=== PATIENT | female | born 1990 | race African-American/Black ===

== ENCOUNTER 2020-02-09 02:14 | Emergency (ER) | payer SELFPAY ==
[~2020-02-09] VITALS: Ht 172.7 cm; Wt 59.0 kg
--- NOTE | 2020-02-09 02:18 | NUR ---
ED Nurse Note: brought in by ambulance stephenie ra 27 from home c/o body chills; denies NVD. ambulatory with steady gait. changed into gown;attached to monitor. all safety measures met.
[2020-02-09 02:19] VITALS: BP 113/70
--- NOTE | 2020-02-09 02:50 | NUR ---
ED Nurse Note: iv access established. blood and urine collected; sent down to lab.
[2020-02-09 03:03] LABS: EOSINOPHILS % (AUTO) 0.9 % (0.0-3.0); HEMATOCRIT 36.1 % (37.0-47.0); HEMOGLOBIN 11.8 G/DL (12.0-16.0); LYMPHOCYTES % (AUTO) 24.1 % (20.0-45.0); MEAN CORPUSCULAR VOLUME 92 FL (80-99); MONOCYTES % (AUTO) 6.1 % (1.0-10.0); NEUTROPHILS % (AUTO) 67.9 % (45.0-75.0); PLATELET COUNT 176 K/UL (150-450); RED BLOOD COUNT 3.95 M/UL (4.20-5.40); RED CELL DISTRIBUTION WIDTH 11.9 % (11.6-14.8); WHITE BLOOD COUNT 6.9 K/UL (4.8-10.8)
[2020-02-09 03:16] LABS: ANION GAP 8 mmol/L (5-15); BLOOD UREA NITROGEN 13 mg/dL (7-18); CALCIUM 8.5 MG/DL (8.5-10.1); CARBON DIOXIDE 27 MMOL/L (21-32); CHLORIDE 102 MMOL/L (98-107); CREATININE 0.9 MG/DL (0.55-1.30); POTASSIUM 3.5 MMOL/L (3.5-5.1); SODIUM 137 MMOL/L (136-145)
--- NOTE | 2020-02-09 03:24 | NUR ---
ED Nurse Note: imaging completed at bedside with senior wind turbine technician
[2020-02-09 03:26] LABS: APPEARANCE,URINE CLEAR; BILIRUBIN, URINE NEGATIVE (NEGATIVE); COLOR,URINE PALE YELLOW; GLUCOSE, URINE (UA) NEGATIVE (NEGATIVE); KETONES,URINE 2+ (NEGATIVE); LEUKOCYTE ESTERASE ,URINE NEGATIVE (NEGATIVE); NITRITE,URINE NEGATIVE (NEGATIVE); PH,URINE 6 (4.5-8.0); PROTEIN,URINE NEGATIVE (NEGATIVE); UROBILINOGEN,URINE NORMAL MG/DL (0.0-1.0)
[2020-02-09 03:29] LABS: ALANINE AMINOTRANSFERASE 8 U/L (12-78); ALBUMIN 3.9 G/DL (3.4-5.0); ALBUMIN/GLOBULIN RATIO 1.2 (1.0-2.7); ALKALINE PHOSPHATASE 55 U/L (46-116); ASPARTATE AMINO TRANSFERASE 15 U/L (15-37); BILIRUBIN,TOTAL 0.6 MG/DL (0.2-1.0)
[2020-02-09] MEDS ORDERED: EPIPEN 2-P0.3 MG/0.3 IM (03:52)
--- NOTE | 2020-02-09 03:54 | Emergency Room Report ---
History of Present Illness General Chief Complaint: General Complaint Source: Patient Present Illness HPI 29-year-old -Gab[place] female with past medical history of anxiety presents by ambulance with complaint of palpitations. She states that her symptoms started today after dying her hair. This is the first time using that chemical for dying her hair. She noted that it made her scalp extra tingly/itchy and had some hives on the left shoulder and left neck that self resolved. She states that this reaction caused her to feel more anxious and that is when her palpitations started. These palpitations are consistent with her previous panic attacks according to the patient. She denies any pressure-like chest pain, hemoptysis, history of blood clot diaphoresis, nausea, vomiting, diarrhea, fever, cough, wheezing, lip swelling, throat closure, or other symptoms. Denies recent travel, immobilization, or surgery. denies any new soaps, detergents, or changes in diet. LMP yesterday. The patient's symptoms were gradual onset, severity was moderate, duration since 1 day. Quality: Itchy Past medical history: Anxiety Past surgical history: Denies Smoking: Denies Alcohol use: Denies Drug use: Denies Review of systems: CONST: No fevers or chills, No night sweats PULMONARY: No productive cough, No shortness of breath CARDIAC: No chest pain, ++ palpitations GI: No vomiting, No diarrhea , No melena_or_BRBPR : No dysuria, No hematuria, No discharge NEURO: No new_focal_weakness_or_numbness, No confusion, No vision changes 14 point Review of Systems is otherwise negative except per HPI Physical Exam: GENERAL: Awake_alert_ nontoxic, no acute distress Spo2 100% on RA -normal EYES: Extraocular muscles are intact. Conjunctivae clear. Lids without swelling ENT: External nose and ear normal_in_appearance. Oropharynx clear. Head_atraumatic, Moist_oral_mucosa No stridor, drooling, hoarse voice. No lip swelling. No angioedema. NECK: No JVD. No meningismus. No thyromegaly. Supple. Trachea midline RESP: Normal respiratory effort. Symmetric rise. No stridor. Clear_to_auscultation_No_rales_No_wheezes CARDIAC: Regular rate and regular rhytm. No_significant pedal edema. ABDOMEN: Soft. Nondistended. Nontender_No_rebound_or_guarding. MSK: Normal muscle tone, without rigidity. Extremities without asymmetric deformity or swelling. SKIN: Warm and dry. No visible cyanosis or pallor Cupping to the posterior thoracic area. No crepitus. No cellulitis NEUROLOGIC: Alert, oriented x3. Motor_and_sensation_grossly_intact. No truncal ataxia. Gait_normal Psych: Normal mood and affect, normal judgment and insight - COORDINATION OF CARE Case was discussed with: Patient Any labs and imaging that were ordered were interpreted as part of the medical decision making: Medical Decision Making/Plan: Initial VSS stable. Airway is intact with no stridor, drooling, or increased WOB. No oral, tongue or lip swelling noted. Patient appears to be presenting with mild to moderate allergic reaction, there is no evidence of angioedema, no oral involvement, no difficulty breathing or nausea vomiting. Patient is nontoxic and well-appearing the patient is tolerating fluids. The findings are minimal and due to nonprogression of symptoms here the patient is safe to discharge home. The patient feels comfortable with plan and will return immediately if symptoms begin to worsen. Patient given a dose of steroids and Benadryl here in the emergency department. Patient will be discharged with an EpiPen and told to follow-up with an tape controlled machine stitcher. She was incidentally found to have HCG of 265, far below discriminatory zone. No abdominal pain, nausea, vomiting, or pelvic pain. Unlikely ectopic. She was instructed to follow up with CHARGEBACK SPECIALIST for repeat hcg quant in 48 hrs. Regarding care She was educated about potential teratogenic effect of epipen and to only use if she is having life threatening anaphylaxis. She has been instructed to avoid using this hair dye in the future. Palpitations are not consistent with ACS. EKG is nonischemic. Troponin is negative x1. HEART score 0. Doubt PE. PERC negative Patient was instructed to avoid all potential allergic stimuli in the future The patient was instructed to avoid potential precipitating factor and to follow up with their regular physician for referral to powered bridge specialist for definitive allergy testing. Pertinent results reviewed with the patient. I educated the patient on the c urrent treatment plan including the risks, benefits, and alternatives. I also discussed the extent and limitations of the current evaluation. The patient expressed understanding and agreement with plan. I recommended PMD follow-up within 1-2 days. Also advised that the patient return to the Emergency Department as soon as possible if they experience any new, persistent, or worsening symptoms. Allergies: Coded Allergies: SULFA (SULFONAMIDE ANTIBIOTICS) (Verified Allergy, Mild, 02/09/20) COVID-19 Screening Contact w/high risk pt: No Experienced COVID-19 symptoms?: No COVID-19 Testing performed POLICY WRITER TYPIST: No Patient History Last Menstrual Period: 02/08/2020 Now: Yes : 4 Para: 2 Nursing Documentation-[facility] Past Medical History: No History, Except For Hx Asthma: Yes History Of Psychiatric Problem: Yes - ANXIETY Physical Exam Vital Signs Date Time Temp Pulse Resp B/P (MAP) Pulse Ox O2 Delivery O2 Flow Rate FiO2 02/09/20 02:11 98.8 97 16 113/70 (84) 98 Room Air Sp02 EP Interpretation: reviewed, normal Medical Decision Making Diagnostic Impression: Primary Impression: Palpitations Additional Impressions: Anxiety Allergic reaction EKG Diagnostic Results Troponin ordered: Yes When was troponin ordered?: Feb 09, 2020 EKG Time: 02:11 EP Interpretation: saadia STEEL Scribe Text 12-lead EKG (interpreted by me) Time: 0254 Indication: Rhythm analysis Tracing visualized and Interpreted by me. Rhythm: Normal sinus rhythm Rate: 84 bpm QTc: 432 Morphology: No_significant_ST_elevations_or_depressions, No STEMI Impression: Normal_sinus_rhythm_without_significant_abnormality Rhythm Strip Diag. Results Rhythm Strip Time: 03:50 EP Interpretation: yes Rate: 84 Rhythm: NSR, no PVC's, no ectopy Chest X-Ray Diagnostic Results Chest X-Ray Diagnostic Results : DAMIÁN Scribe Text Chest X-Ray: Views: 1 view(s) Indication: Palpitations Findings: Normal heart size. Mediastinum normal. No infiltrate. Impression: No acute disease The X-ray(s) were independently viewed and interpreted contemporaneously Electronically signed by Carla gallagher DO Reevaluation Time: 03:51 Last Vital Signs Date Time Temp Pulse Resp B/P (MAP) Pulse Ox O2 Delivery O2 Flow Rate FiO2 02/09/20 02:19 98.8 77 16 113/70 98 Room Air Status: improved Disposition: HOME, SELF-CARE Admit Decision Time: 03:51 Condition: Stable Scripts Epinephrine (Epipen 2-Ross) 0.3 Mg/0.3 Ml Auto.injct 0.3 MG IM 1 for anaphylaxis for 1 Day, #1 EA Prov: Carla Oneill D.O. 02/09/20 Additional Instructions: Instructions for patient/sixth grade teacher: Follow up with your physician in 1-2 days for repeat beta HCG. You were found to be test positive here in the emergency department. Please follow- up with MAKEUP ARTIST regarding care Follow-up with your doctor sooner if your condition requires a more timely clinical reevaluation. Return to the emergency department immediately if you feel that your condition is worsening or if you have any new or concerning symptoms. Review your discharge instructions and take any prescriptions given as instructed. [facility] PROVIDES FREE OR LOW-COST HEALTH SERVICES TO PEOPLE WHO CAN SHOW PROOF THAT THEY LIVE IN [facility]. TO FIND MORE CLINICS PARTNERED WITH THE [facility] TO PROVIDE SERVICE, PLEASE CALL . Carla Oneill D.O. Feb 09, 2020 03:54
--- NOTE | 2020-02-09 04:04 | NUR ---
ER DISCHARGE NOTE: Patient is cleared to be discharged per ERMD, pt is aox4, on room air, with stable vital signs. pt was given dc and prescription instructions, pt was able to verbalize understanding, pt id band and iv site removed without complications. pt is able to ambulate with steady gait. pt took all belongings.
[2020-02-09 04:05] VITALS: BP 121/73
--- NOTE | 2020-02-09 14:54 | Diagnostic Imaging Report ---
Indication: Cough Technique: One view of the chest Comparison: none Findings: Lungs and pleural spaces are clear. Heart size is normal. Impression: No acute process
--- NOTE | 2020-02-11 14:55 | Cardiology Report ---
APPROVED REPORT EKG Measurement Heart [id number] <Conclusion> Normal sinus rhythm with sinus arrhythmia Normal ECG
== END 2020-02-09 04:05 | disposition home or self-care (01) ==
LOC: EDBD 02:14 → EMR 03:59
DX: O26.90 Pregnancy related conditions, unspecified, unspecified trimester (principal); R00.2 Palpitations; F41.9 Anxiety disorder, unspecified; T78.40XA Allergy, unspecified, initial encounter; X58.XXXA Exposure to other specified factors, initial encounter; Z88.2 Allergy status to sulfonamides; Z3A.00 Weeks of gestation of pregnancy not specified
CPT/HCPCS: 36415; 71045; 80053; 81001; 84443; 84484; 84702; 85025; 93005; 99284; J8540